=== PATIENT | female | born 1945 | race Caucasian/White ===

== ENCOUNTER 2021-05-01 18:15 | Emergency (ER) | payer BC ==
[~2021-05-01] VITALS: Ht 170.2 cm; Wt 90.7 kg
--- NOTE | ~2021-05-01 | EMS ---
[facility] [address] [facility] [place] [place] [address] EMS Patient Care Report Name: GITA BUTTS Room: [facility]#: [id number] Admission: 05/01/21 Attend Phys: Discharge: Date of : 49 Report #: [id number] THIS REPORT FOR: //name// Report Transmitted: 05/01/2021 18:05 EMS Care Summary [facility] Incident [id number] @ 05/01/2021 17:37 Incident Location [address] [place] [address] Patient GITA BUTTS Female, 75 Years 1945 Patient Address [address] [address] Patient History Gastro-Esophageal Reflux Disease (GERD), Patient Allergies , Patient Medications Pantoprazole, Metoprolol, Duloxetine, Chief Complaint Choking Disposition Transported No Lights/Man Dispatch Reason Breathing Problem Transported To [facility] Narrative 75 Y O F C/O CHOKING ON A TACO. SHE SAID IT WAS HER THIRD HARD SHELLED TACO FROM TACO ROJO THAT SHE STARTED CHOKING ON AND SHE FEELS LIKE PART OF IT IS STILL STUCK IN HER THROAT. SHE HAD A C3-C7 FUSION BACK IN 2017 AND HAS HAD PROBLEMS WITH SWALLOWING SINCE. PT DENIED PAIN TO HEAD, NECK, BACK, CHEST, ABD, [facility] [address] [facility] [place] [address] EMS Patient Care Report Name: GITA BUTTS Room: [facility]#: [id number] Admission: 05/01/21 Attend Phys: Discharge: Date of : 49 Report #: [id number] PELVIS, EXT AND LOSS OF CONSCIOUSNESS. PT FOUND WALKING TO THE COT A AND OX4, ABCS IN TACT HEENT GCS 15, PUPILS RAPHAEL, NO JVD, INLINE TRAC CHEST = RISE AND FALL, - ACC MUSCLE, CBBS ABD SOFT NON TENDER PELVIS IN TACT, - LOSS OF BLADDER/BOWEL EXT VAN, BERE, PULSES PRESENT, SKIN WARM, NORMAL COLOR AND MOISTURE TX: PRIMARY, SECONDARY, PT SAT ON COT, 5 POINT H[place]ESS, COT TO UNIT, VITALS, EKG, PT TRANSPORTED TO [facility] DUE TO [facility] BEING ON HIGH VOLUME, RADIO REPORT AND CARE CONTINUED EN ROUTE, UPON ARRIVAL CARE TURNED OVER TO STAFF IN ER. Initial Vitals @17:55SpO2: 97, @17:56SpO2: 92, @17:55 @18:00 @18:05 @18:10 @17:56P: 92,R: 16,BP: 116/76, @18:10P: 110,R: 16,BP: 103/72, @17:56GCS: 15, @18:10GCS: 15, Assessments @17:50MENTAL:SKIN:HEENT:LUNG SOUNDS:ABDOMEN:PELVIS//GI:EXTREMITIES:PULSE:NEURO: Impression Acute Respiratory Distress (Dyspnea) Procedures @17:55 3-Lead ECG Response: UnchangedSucceeded @18:00 3-Lead ECG Response: UnchangedSucceeded @18:05 3-Lead ECG Response: UnchangedSucceeded @18:10 3-Lead ECG Response: UnchangedSucceeded Timeline 17:30,Call Received 17:35,Dispatch Notified 17:35,Psap Call 17:37,Dispatched 17:38,En Route 17:48,On Scene 17:50,At Patient 17:55,3-Lead ECG,Response: UnchangedSucceeded, 17:55,BP: / M,PULSE: ,RR: R,SPO2: 97 Ox,ETCO2: ,BG: ,PAIN: ,GCS: , 17:55,BP: / M,PULSE: ,RR: R,SPO2: Ox,ETCO2: ,BG: ,PAIN: ,GCS: , [place] [address] EMS Patient Care Report Name: GITA BUTTS Room: [facility]#: [id number] Admission: 05/01/21 Attend Phys: Discharge: Date of : 49 Report #: [id number] 17:56,BP: / M,PULSE: ,RR: R,SPO2: 92 Ox,ETCO2: ,BG: ,PAIN: ,GCS: , 17:56,BP: 116/76 M,PULSE: 92,RR: 16 R,SPO2: Ox,ETCO2: ,BG: ,PAIN: ,GCS: , 17:56,BP: / M,PULSE: ,RR: R,SPO2: Ox,ETCO2: ,BG: ,PAIN: ,GCS: 15, 17:58,Depart Scene 18:00,3-Lead ECG,Response: UnchangedSucceeded, 18:00,BP: / M,PULSE: ,RR: R,SPO2: Ox,ETCO2: ,BG: ,PAIN: ,GCS: , 18:05,3-Lead ECG,Response: UnchangedSucceeded, 18:05,BP: / M,PULSE: ,RR: R,SPO2: Ox,ETCO2: ,BG: ,PAIN: ,GCS: , 18:10,3-Lead ECG,Response: UnchangedSucceeded, 18:10,BP: / M,PULSE: ,RR: R,SPO2: Ox,ETCO2: ,BG: ,PAIN: ,GCS: , 18:10,BP: 103/72 M,PULSE: 110,RR: 16 R,SPO2: Ox,ETCO2: ,BG: ,PAIN: ,GCS: , 18:10,BP: / M,PULSE: ,RR: R,SPO2: Ox,ETCO2: ,BG: ,PAIN: ,GCS: 15, 18:11,At Destination 18:23,Call Closed Disclaimer v1.1 Copyright 2020 [employer] This EMS Care Summary contains data elements from the applicable legal record (which may be displayed differently). It is designed to provide pertinent information for the following purposes: continuity of care, clinical quality, and state data reporting. The complete legal record is available to ED staff and administrators of the receiving hospital in [employer]'s Patient Tracker. All data is provided "as is."
[2021-05-01] MEDS ORDERED: METOPROLOL TART25 MG PO (18:22)
[2021-05-01] MEDS ORDERED: LODINE400 M1 PO (18:22)
[2021-05-01] MEDS ORDERED: PROTONIX40 M2 PO (18:22)
[2021-05-01] MEDS ORDERED: DULOXETINE HCL30 MG PO (18:22)
[2021-05-01] MEDS ORDERED: FOSAMAX 70 MG T70 MG PO (18:22)
[2021-05-01] MEDS ORDERED: CARAFATE1 GM/10 ML PO ×2 (19:16→19:39)
[2021-05-01] MEDS ORDERED: LIDOCAINE VISC100 ML SW&SWALLOW ×2 (19:16→19:39)
[2021-05-01] MEDS ORDERED: ZOFRAN ODT4 MG PO ×2 (19:16→19:39)
[2021-05-01 19:32] VITALS: BP 148/100
== END 2021-05-01 19:32 | disposition home or self-care (01) ==
LOC: M.ERS 18:15
DX: S27.818A Other injury of esophagus (thoracic part), initial encounter (principal); K21.9 Gastro-esophageal reflux disease without esophagitis; M79.7 Fibromyalgia; Z79.899 Other long term (current) drug therapy; X58.XXXA Exposure to other specified factors, initial encounter; Y93.89 Activity, other specified; Y92.89 Other specified places as the place of occurrence of the external cause; Y99.8 Other external cause status